=== PATIENT | male | born 1970 | race Caucasian/White ===

== ENCOUNTER 2020-09-20 06:54 | Emergency (ER) | payer BC, OTHER ==
[~2020-09-20 06:54] MED LIST: HYDROCODON-ACE1 EAC4 PO; IBUPROFEN400 MG PO; LOPRESSOR 50 MG50 MG PO; NAPROXEN500 MG PO; VOLTAREN ARTHRI20 GM TP
[2020-12-29] MEDS ORDERED: LACTULOSE10 GM/152 PO (12:45)
== END 2020-09-20 09:50 | disposition home or self-care (01) ==
LOC: ER1 06:54
DX: T18.128A Food in esophagus causing other injury, initial encounter (principal); Z88.8 Allergy status to other drugs, medicaments and biological substances; X58.XXXA Exposure to other specified factors, initial encounter; Z20.822 Contact with and (suspected) exposure to COVID-19
CPT/HCPCS: 87635; 99283; J0330; J2704; J7040

== ENCOUNTER → 2020-12-29 | Day surgery (SDC) | payer BC, OTHER ==
[~2020-12-29] MED LIST changes: +LACTULOSE10 GM/152 PO
== END | disposition home or self-care (01) ==
LOC: OR 09:54
DX: Z12.11 Encounter for screening for malignant neoplasm of colon (principal); K29.50 Unspecified chronic gastritis without bleeding; K21.00 Gastro-esophageal reflux disease with esophagitis, without bleeding; B96.81 Helicobacter pylori [H. pylori] as the cause of diseases classified elsewhere; K20.0 Eosinophilic esophagitis; K29.80 Duodenitis without bleeding; I10 Essential (primary) hypertension; E83.119 Hemochromatosis, unspecified; Z87.891 Personal history of nicotine dependence; Z88.8 Allergy status to other drugs, medicaments and biological substances; Z79.891 Long term (current) use of opiate analgesic; Z79.899 Other long term (current) drug therapy
CPT/HCPCS: 43239; G0121; J2704; J7040

== ENCOUNTER → 2022-04-08 | Outpatient (CLI) | payer BC | LOC: HEART 5 04-02 09:00 | DX: R06.02 Shortness of breath (principal) | CPT/HCPCS: 93306 ==